=== PATIENT | male | born 1995 | race Caucasian/White ===

== ENCOUNTER 2017-01-05 20:22 | Emergency (ER) | payer BC, OTHER ==
--- OUTSIDE RECORDS SUMMARY | 2017-01-05 21:13 | XMS REPORT | Continuity of Care Document ---
:1995 Author Organization [facility] ([facility]) Address [address] [place] [address] Phone [phone] Care Team Providers Name Role Phone Damon Newton Primary Care Provider [phone] Source Comments This disclosure is being made pursuant to the Care Everywhere program, applicable federal and state laws, and may not contain all informaitonavailable regarding this patient.[facility] ([facility]) Active Allergies and Adverse Reactions Allergen Noted Date Severity Reactions Comments Amoxicillin-Pot Clavulanate 10/28/2011 Urticaria (Hives) Cephalosporins 10/28/2011 Urticaria (Hives) Penicillins 10/28/2011 Urticaria (Hives) Current Medications Prescription Sig. Disp. Refills Start Date End Date Status minocycline (DYNACIN) 100 Take 100 mg by Active mg tablet mouth 2 times daily. Active Problems Not on file Social History Tobacco Use Types Packs/Day Years Used Date Never Smoker Smokeless Tobacco: Never Used Last Filed Vital Signs Vital Sign Reading Time Taken Blood Pressure 111/64 10/28/2011 9:50 AM CDT Pulse 62 10/28/2011 9:50 AM CDT Temperature 36.5 C (97.7 F) 10/28/2011 9:47 AM CDT Respiratory Rate 22 10/28/2011 9:47 AM CDT Height 1.749 m (5' 8.86") 10/28/2011 9:47 AM CDT Weight 75.6 kg (166 lb 10.7 oz) 10/28/2011 9:47 AM CDT Body Mass Index 24.71 10/28/2011 9:47 AM CDT Oxygen Saturation 100% 10/28/2011 9:47 AM CDT Plan of Care Health Maintenance Due Date Last Done Comments Hepatitis B Vaccine (1 of 3 - Primary Series) 1996 HPV Vaccine (1 of 3 - Male 3 Dose Series) 01/25/2007 Tdap Vaccine 01/25/2007 Meningococcal Vaccine (1 of 1) 2012 Lipid Disorder Screening 01/25/2014 MMR Vaccine 01/25/2014 Td Vaccine 01/25/2014 Varicella Vaccine (1 of 2 - Adult - No Evidence of 01/25/2014 Immunity) Influenza Vaccine: Seasonal (#1) 02/25/2016 Results from Last 3 Months Not on file
--- NOTE | 2017-01-05 21:15 | ERNOTE ---
Lower Extremity HPI - Narrative Date of Service: 01/05/17 - General Lower Extremities Pain: knee: right Time Seen by Provider: 01/05/17 21:01 Source: patient - Immun/Allergies/Home Medications Immunizations: IMMUNIZATION HX Immunizations Up to Date Yes Allergies/Adverse Reactions: Allergies Allergy/AdvReac Type Severity Reaction Status Date / Time amoxicillin [From Augmentin] AdvReac Hives Verified 01/05/17 20:35 Cephalosporins AdvReac Hives Verified 01/05/17 20:35 clavulanic acid AdvReac Hives Verified 01/05/17 20:35 [From Augmentin] Home Medications: HOME MEDICATIONS NK [No Home Medication] 01/05/17 [Last Taken Unknown] - History of Present Illness Narrative: Was playing soccer when he thinks he went into a dip and caught his right leg. [place] his knee give away and he went down. Could not weight bear after. Came to ED and complaining of some medial and lateral knee pain with movement. Occurred: just prior to arrival Review of Systems - Review of Systems Constitutional: Present: no symptoms reported ENT: Present: no symptoms reported Respiratory: Present: no symptoms reported Cardiology: Present: no symptoms reported Gastrointestinal/Abdominal: Present: no symptoms reported Musculoskeletal: Present: See HPI - Patient's Past Medical History Patient History - Medical: No pertinent hx Patient History - Cardiac/Respiratory: No pertinent hx Patient History - Cancer: No Hx of Cancer Patient History - Surgical Procedures: T & A - Social History Smoking Status: Never smoker Have you smoked in the past 12 months: No - Immunizations Immunizations Up to Date: Yes Physical Exam - Physical Exam General Appearance: Present: wd/wn, alert, no apparent distress Neck: Present: normal inspection Respiratory: Present: no respiratory distress Cardiovascular/Chest: Present: regular rate, rhythm Gastrointestinal/Abdominal: Present: nontender, soft Extremity Exam: Present: normal inspection, other - Knee has some very slight infrpatellar fluids. No bony tenderness. Medial and lateral collateral tenderness with laxity. Anterior drawer sign negative. Pulses symmetrical ED Progress - Vital Signs Vital Signs: Vital Signs 01/05/17 20:31 Temperature 37.4 C Pulse Rate 88 Respiratory 10 L Rate Blood Pressure 111/66 O2 Sat by Pulse 100 Oximetry - X-Ray X-Ray #1 X-Ray: knee - No fx seen. Slight fluid - Progress/Reassessment Chief Complaint: Lower Extremity Pain/ Injury Plan - Plan Plan: Ice/elevation Ibuprofen/tylenol Knee immobilzer Follow up with PCP Departure Clinical Impression: Strain of right knee - Departure Disposition: Home self-care Condition: Good Instructions: Knee Sprain, [id number] Additional Instructions: Ice/elevation for 24-36 hours Wear knee immobilizer when up Use tylenol 1000 mg alternating with ibuprofen 600 mg every 3 hours Follow up with PCP
[2017-01-05 21:29] VITALS: BP 121/73
== END 2017-01-05 21:27 | disposition home or self-care (01) ==
LOC: ER 20:22
PROC: 2W3LX1Z Immobilization of Right Lower Extremity using Splint (ICD-10-PCS; principal; 2017-01-05)
DX: S83.91XA Sprain of unspecified site of right knee, initial encounter (principal); X58.XXXA Exposure to other specified factors, initial encounter; Y93.66 Activity, soccer; Y92.9 Unspecified place or not applicable; Y99.8 Other external cause status